=== PATIENT | female | born 1980 | race Caucasian/White ===

== ENCOUNTER 2016-04-08 15:02 | Emergency (ER) | payer OTHER ==
[2016-04-08] MEDS ORDERED: IBUPROFEN 600 MG TABLET ONE (15:43)
[2016-04-08] MEDS ORDERED: CYCLOBENZAPRINE HCL 10 MG TABLET ONE (15:44)
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
== END 2016-04-08 17:00 | disposition home or self-care (01) ==
LOC: ED 15:02
DX: S16.1XXA Strain of muscle, fascia and tendon at neck level, initial encounter (principal); R51 Headache; V43.52XA Car driver injured in collision with other type car in traffic accident, initial encounter; Y92.410 Unspecified street and highway as the place of occurrence of the external cause
CPT/HCPCS: 72040; 99283 ×2; A9270